=== PATIENT | female | born 1945 | race Caucasian/White ===

== ENCOUNTER 2017-09-05 06:58 | Emergency (ER) | payer MEDICARE ==
[~2017-09-05] VITALS: Ht 162.6 cm; Wt 97.5 kg
[2017-09-05 06:58] VITALS: BP_SYST 113
--- NOTE | 2017-09-05 07:01 | NUR ---
BROUGHT IN BY [facility] AND PLACED IN BED #6 AND TRIAGED. REPORT GIVEN TO DANA.
--- NOTE | 2017-09-05 07:15 | NUR ---
Pt stated that left shoulder pain started 2 days ago from daily use. Denies fall or trauma for injury. Pt stated that she was taking OTC meds for pain, but that was not touching her pain. Will continue to monitor.
--- NOTE | 2017-09-05 07:19 | NUR ---
BRI Dykes at bedside examining patient.
[2017-09-05] MEDS ORDERED: HYDROcodone/ACETAMIN 5-325 MG TAB (NORCO/ VICODIN) PO ONE (07:30)
--- NOTE | 2017-09-05 08:37 | NUR ---
Pt having bedside Xray performed
--- NOTE | 2017-09-05 09:09 | NUR ---
Transportation Pt's neighbor Kari Conley is at bedside. She will be leaving shortly and wanted to provide her contact information since she will come back to merchandise pickup/receiving associate pt.
--- NOTE | 2017-09-05 09:20 | NUR ---
Pt endorsed to Eric PEDROZA.
[2017-09-05 12:01] VITALS: BP_SYST 152
--- NOTE | 2017-09-05 12:02 | NUR ---
Patient given written and verbal discharge instructions and verbalizes understanding. ER MD discussed with patient the results and treatment provided. Patient in stable condition. ID arm band removed. IV catheter removed intact and dressing applied, no active bleeding. Rx of [place] given. Patient educated on pain management and to follow up with PMD. Pain Scale 0/10. Opportunity for questions provided and answered.
== END 2017-09-05 12:02 | disposition home or self-care (01) ==
LOC: SED 06:58
DX: G62.9 Polyneuropathy, unspecified (principal); G80.9 Cerebral palsy, unspecified
CPT/HCPCS: 73030; 73060-TC; 99284

== ENCOUNTER 2023-12-04 03:28 | Emergency (ER) | payer MEDICARE ==
[~2023-12-04] VITALS: Ht 162.6 cm; Wt 83.0 kg
[2023-12-04 03:34] VITALS: BP_SYST 137; PULSE 120; RESP 16; TEMP 98.5; O2SAT 95
[2023-12-04] MEDS: NACL 0.9% 1,000 ML IV ONE (04:29)
[2023-12-04] MEDS: KETOROLAC TROMETHAMINE 30 MG VIAL IVP ONE (04:30)
[2023-12-04 05:12] LABS: BASOPHILS % (AUTO) 0.5 % (0.0-2.0); EOSINOPHILS % (AUTO) 0.7 % (0.0-4.0); HEMATOCRIT 31.2 % (36-48); HEMOGLOBIN 10.7 g/dL (12.0-16.0); LYMPHOCYTES # (AUTO) 0.5 K/uL (1.0-5.5); MEAN CORPUSCULAR HEMOGLOBIN 31 pg (27-31); MEAN CORPUSCULAR HGB CONC 35 % (32-36); MEAN CORPUSCULAR VOLUME 90 fL (79.0-98.0); MONOCYTES # (AUTO) 0.4 K/uL (0.0-1.0); MONOCYTES % (AUTO) 7.3 % (1.7-9.3); NEUTROPHILS # (AUTO) 4.5 K/uL (1.8-7.7); NEUTROPHILS % (AUTO) 82.5 % (40.0-70.0); PLATELET COUNT (AUTO) 350 K/uL (130-430); RED BLOOD CELL COUNT(AUTO) 3.45 MIL/uL (4.2-6.2); RED CELL DISTRIBUTION WIDTH 13.5 % (9.0-15.0); WHITE BLOOD COUNT (AUTO) 5.5 K/uL (4.8-10.8)
[2023-12-04 05:19] LABS: CLARITY/URINE TURBID (CLEAR); COLOR,URINE RED (YELLOW); PH,URINE 5.5 (5.0-8.0); PROTEIN URINE 3+ (NEGATIVE)
[2023-12-04 05:20] LABS: BILIRUBIN,URINE 1+ (NEGATIVE); BLOOD, URINE 3+ (NEGATIVE); GLUCOSE,URINE NEGATIVE (NEGATIVE); KETONES,URINE NEGATIVE (NEGATIVE); LEUKOCYTE ESTERASE ,URINE 3+ (NEGATIVE)
[2023-12-04 05:21] LABS: NITRITE, URINE POSITIVE (NEGATIVE); UROBILINOGEN,URINE 0.2 (0.2-1.0)
[2023-12-04 05:26] LABS: BACTERIA,URINE FEW /HPF (None Seen); RBC,URINE >100 /HPF (0-3); WBC,URINE >100 /HPF (0-3)
[2023-12-04 05:29] LABS: ANION GAP 8 (5-15); CALCIUM 8.3 mg/dL (8.4-11.0); CARBON DIOXIDE 29 mmol/L (23-29); CHLORIDE 95 mmol/L (98-107); CREATININE 0.75 mg/dL (0.55-1.30); GLUCOSE 103 mg/dL (74-106); POTASSIUM 4.1 mmol/L (3.5-5.1); SODIUM SERUM 132 mmol/L (136-145); UREA NITROGEN, BLOOD 10 mg/dL (8-21)
[2023-12-04] MEDS ORDERED: CIPR500T5 PO (05:57)
[2023-12-04] MEDS ORDERED: cefTRIAXone 1 GM IVPB PREMIX 50 ML IV ONE (08:08)
[2023-12-04] MEDS: cefTRIAXone 1 GM in D5W 50 ML IV ONE (08:13)
[2023-12-04 10:02] VITALS: BP_SYST 121; PULSE 88; RESP 17; TEMP 98.9; O2SAT 95
== END 2023-12-04 10:04 | disposition home or self-care (01) ==
LOC: SED 03:28
DX: N39.0 Urinary tract infection, site not specified (principal); R06.02 Shortness of breath; M54.2 Cervicalgia; Z79.899 Other long term (current) drug therapy
CPT/HCPCS: 99285; 96365; 71275; 71045; 96361; 96375; 80048; 81001; 83880; 85025; 85379; 87040; 87086; 84484; 36415; 93005; 81000; 81015; J0696; J1885; Q9967; J7030; 87186